=== PATIENT | female | born 1980 | race Caucasian/White ===

== ENCOUNTER 2017-03-31 14:16 | Emergency (ER) | payer MEDICARE, MEDICAID ==
[~2017-03-31] VITALS: Ht 162.6 cm; Wt 72.6 kg
[2017-03-31] MEDS ORDERED: ketorolac trometh. 30mg/ml inj. IV ONE (15:15)
[2017-03-31] MEDS ORDERED: ondansetron/PF 4mg/2ml inj IV ONE (15:15)
[2017-03-31] MEDS ORDERED: acetaminophen 325mg tablet PO ONE (15:15)
[2017-03-31] MEDS ORDERED: normal saline 1000ML IV soln IVB ONE (15:15)
[2017-03-31] MEDS ORDERED: AZIT-63 PO (16:52)
[2017-03-31] MEDS ORDERED: GUAI400T77 PO (16:52)
[2017-03-31 17:14] VITALS: BP 117/60
== END 2017-03-31 17:46 | disposition home or self-care (01) ==
LOC: ER 14:17
DX: R05 Cough (principal); J00 Acute nasopharyngitis [common cold]; R50.9 Fever, unspecified; Z88.5 Allergy status to narcotic agent
CPT/HCPCS: 96374; 96375; 99284; J1885; J2405; J7030